=== PATIENT | female | born 1970 | race Caucasian/White ===

== ENCOUNTER → 2017-01-04 | Outpatient (CLI) | payer OTHER ==
--- NOTE | 2017-01-06 11:09 | MM ---
Reason for exam: screening (asymptomatic). Last mammogram was performed 1 year and 3 months ago. History: Patient is postmenopausal. Saline implants in both breasts, 1998. Took estrogen for 8 years beginning at age 29. Physical Findings: A clinical breast exam by your physician is recommended on an annual basis and results should be correlated with mammographic findings. MG Screening Mammo Implant/CAD Bilateral CC, MLO, and ID view(s) were taken. Prior study comparison: October 01, 2015, bilateral MG screening mammo implant/CAD. September 12, 2014, left breast MG work up mamm w CAD LT. September 12, 2014, left breast US breast limited LT. The breast tissue is heterogeneously dense. This may lower the sensitivity of mammography. Stable right breast retroaerolar mass 09/12/14 prior study views. No new suspicious findings. ASSESSMENT: Benign, BI-RAD 2 RECOMMENDATION: Routine screening mammogram of both breasts in 1 year.
== END | disposition home or self-care (01) ==
LOC: RADMAMWWP 15:20
PROVIDERS: ATTEND Family Medicine
DX: Z12.31 Encounter for screening mammogram for malignant neoplasm of breast (principal)

== ENCOUNTER → 2019-12-14 | Outpatient (CLI) | payer OTHER ==
--- NOTE | 2019-12-17 10:17 | MM ---
Reason for exam: screening (asymptomatic). Last mammogram was performed 2 years and 11 months ago. History: Patient is postmenopausal. Saline implants in both breasts, 1998. Took estrogen for 8 years beginning at age 29. Physical Findings: A clinical breast exam by your physician is recommended on an annual basis and results should be correlated with mammographic findings. MG Screening Mammo Implant/CAD Bilateral CC, MLO, and ID view(s) were taken. Prior study comparison: January 04, 2017, bilateral MG screening mammo implant/CAD. October 01, 2015, bilateral MG screening mammo implant/CAD. There are scattered fibroglandular densities. No significant changes when compared with prior studies. ASSESSMENT: Benign, BI-RAD 2 RECOMMENDATION: Routine screening mammogram of both breasts in 1 year.
== END | disposition home or self-care (01) ==
LOC: RADMAMWWP 14:41
PROVIDERS: ATTEND Family Medicine
DX: Z12.31 Encounter for screening mammogram for malignant neoplasm of breast (principal)
CPT/HCPCS: 77067

== ENCOUNTER → 2020-05-20 | Outpatient (CLI) | payer OTHER | END | disposition home or self-care (01) | LOC: LABWHC1 09:08 | PROVIDERS: ATTEND Nurse Practitioner Family | DX: R09.81 Nasal congestion (principal); R19.7 Diarrhea, unspecified | CPT/HCPCS: U0003; C9803 ==

== ENCOUNTER 2020-05-25 17:59 | Emergency (ER) | payer OTHER ==
[2020-05-25 18:05] VITALS: TEMP 98
[2020-05-25] MEDS ORDERED: ASPIRIN 81 MG PO STA (18:27)
[2020-05-25] MEDS ORDERED: SODIUM CHLORIDE 0.9% 500 ML 500 ML IV STA (18:27)
[2020-05-25] MEDS ORDERED: FAMOTIDINE 20 MG/2 ML VIAL IV STA (18:27)
[2020-05-25 18:46] LABS: Basophils # (A) 0.1 k/uL (0-0.2); Basophils % (A) 1 %; Eosinophils # (A) 0.2 k/uL (0-0.7); Eosinophils % (A) 2 %; HCT 41.4 % (34.0-46.0); HGB 14.1 gm/dL (11.4-16.0); Lymphocytes # (A) 2.9 k/uL (1.0-4.8); Lymphocytes % (A) 32 %; MCH 30.9 pg (25.0-35.0); MCHC 34.1 g/dL (31.0-37.0); MCV 90.7 fL (80.0-100.0); Mean Platelet Volume 6.3; Monocytes # (A) 0.4 k/uL (0-1.0); Monocytes % (A) 5 %; Neutrophils # (A) 5.5 k/uL (1.3-7.7); Neutrophils % (A) 60 %; Platelet Count 288 k/uL (150-450); RBC 4.57 m/uL (3.80-5.40); RDW 11.5 % (11.5-15.5); WBC 9.2 k/uL (3.8-10.6)
--- NOTE | 2020-05-25 18:56 | ED ---
General Adult HPI - General Chief complaint: Chest Pain Stated complaint: Chest pressure Time Seen by Provider: 05/25/20 18:06 Source: patient Mode of arrival: ambulatory Limitations: no limitations - History of Present Illness Initial comments: 49-year-old female patient presents to the emergency department today for evaluation of chest pressure. Patient states that she has had symptoms since last evening. States she thought it was indigestion but despite belching multiple times to discomfort has not gone away. States that pressure does radiate through to her back. Denies any nausea or vomiting though she did recently have a nausea and vomiting illness a few days ago that has resolved. States she was tested for COVID-19 which was negative. She denies any shortness of breath, dizziness, weakness. States she does have a history of high ch olesterol. Family history of cardiac disease. Patient denies any recent rash, fever, chills, diarrhea, constipation, back pain, numbness, tingling, hematuria, dysuria, urinary urgency, urinary frequency, headache, visual changes, or any other complaints. - Related Data Home Medications Medication Instructions Recorded Confirmed Atorvastatin Calcium [Lipitor] 10 mg PO DAILY 05/25/20 05/25/20 Azithromycin [Zithromax Z-pack (6 See Taper PO DIRECTED 05/25/20 05/25/20 tabs)] Biotin 10,000 mcg PO DAILY 05/25/20 05/25/20 Cholecalciferol [Vitamin D3 (25 2,000 unit PO DAILY 05/25/20 05/25/20 Mcg = 1000 Iu)] Cyanocobalamin (Vitamin B-12) 1,000 mcg PO DAILY 05/25/20 05/25/20 [Vitamin B-12] Fexofenadine HCl [Lo Allergy] 180 mg PO DAILY 05/25/20 05/25/20 Omeprazole 40 mg PO DAILY 05/25/20 05/25/20 Potassium Gluconate 99 mg PO Q48H 05/25/20 05/25/20 Allergies Allergy/AdvReac Type Severity Reaction Status Date / Time codeine Allergy Dyspnea Verified 05/25/20 18:31 Penicillins Allergy Rash/Hives Verified 05/25/20 18:31 Review of Systems ROS Statement: Those systems with pertinent positive or pertinent negative responses have been documented in the HPI. ROS Other: All systems not noted in ROS Statement are negative. Past Medical History Past Medical History: GERD/Reflux, Hyperlipidemia History of Any Multi-Drug Resistant Organisms: None Reported Past Surgical History: Section, Hysterectomy, Uterine Ablation Additional Past Surgical History / Comment(s): laproscopic exploration Past Psychological History: No Psychological Hx Reported Smoking Status: Former smoker Past Alcohol Use History: None Reported Past Drug Use History: None Reported General Exam Limitations: no limitations General appearance: alert, in no apparent distress, other (This is a well- developed, well-nourished adult female patient in no acute distress. Vital signs upon presentation are temperature 98.0F, pulse 90, respirations 18, blood pressure 154/88, pulse ox 100% on room air.) Respiratory exam: Present: normal lung sounds bilaterally. Absent: respiratory distress, wheezes, rales, rhonchi, stridor Cardiovascular Exam: Present: regular rate, normal rhythm, normal heart sounds. Absent: systolic murmur, diastolic murmur, rubs, gallop, clicks GI/Abdominal exam: Present: soft, normal bowel sounds. Absent: distended, tenderness, guarding, rebound, rigid Neurological exam: Present: alert, oriented X3, CN II-XII intact Psychiatric exam: Present: normal affect, normal mood Skin exam: Present: warm, dry, intact, normal color. Absent: rash Course Vital Signs 05/25/20 18:02 Temperature 98 F Pulse Rate 90 Respiratory 18 Rate Blood Pressure 154/88 O2 Sat by Pulse 100 Oximetry EKG Findings - EKG Comments: EKG Findings:: EKG obtained at 1813 shows normal sinus rhythm with a ventricular rate of 85, IN interval 142, QRS duration 86, QT 368, QTC 437. No evidence of ST elevation or depression. Medical Decision Making - Medical Decision Making 49-year-old female patient presents to the emergency department today for evaluation of chest pressure radiating through to her back. States it feels like indigestion and she has tried belching several times without relief. Physical examination was unremarkable. Lungs are clear to auscultation with good air movement. EKG showed sinus rhythm with no ST elevation or depression. Labs reviewed and troponin is negative. Given duration of symptoms and low risk factors patient will be discharged home to follow-up with her primary care physician first thing in the morning. Return parameters were discussed in detail. She verbalizes understanding and agrees with this plan. - Lab Data Result diagrams: 05/25/20 18:39 05/25/20 18:38 Lab Results 05/25/20 05/25/20 05/25/20 Range/Units 18:38 18:38 18:38 WBC (3.8-10.6) k/uL RBC (3.80-5.40) m/uL Hgb (11.4-16.0) gm/dL Hct (34.0-46.0) % MCV (80.0-100.0) fL MCH (25.0-35.0) pg MCHC (31.0-37.0) g/dL RDW (11.5-15.5) % Plt Count (150-450) k/uL MPV Neutrophils % % Lymphocytes % % Monocytes % % Eosinophils % % Basophils % % Neutrophils # (1.3-7.7) k/uL Lymphocytes # (1.0-4.8) k/uL Monocytes # (0-1.0) k/uL Eosinophils # (0-0.7) k/uL Basophils # (0-0.2) k/uL PT 9.9 (9.0-12.0) sec INR 0.9 (<1.2) APTT 22.2 (22.0-30.0) sec Sodium 137 (137-145) mmol/L Potassium 4.1 (3.5-5.1) mmol/L Chloride 105 (98-107) mmol/L Carbon Dioxide 27 (22-30) mmol/L Anion Gap 5 mmol/L BUN 12 (7-17) mg/dL Creatinine 0.75 (0.52-1.04) mg/dL Est GFR (CKD-EPI)AfAm >90 (>60 ml/min/1.73 sqM) Est GFR (CKD-EPI)NonAf >90 (>60 ml/min/1.73 sqM) Glucose 86 (74-99) mg/dL Calcium 9.5 (8.4-10.2) mg/dL Magnesium 2.0 (1.6-2.3) mg/dL Total Bilirubin 0.3 (0.2-1.3) mg/dL AST 24 (14-36) U/L ALT 19 (4-34) U/L Alkaline Phosphatase 54 (38-126) U/L Troponin I <0.012 (0.000-0.034) ng/mL Total Protein 7.1 (6.3-8.2) g/dL Albumin 4.3 (3.5-5.0) g/dL Lipase 177 (23-300) U/L Urine Color Urine Appearance (Clear) Urine pH (5.0-8.0) Ur Specific [place] (1.001-1.035) Urine Protein (Negative) Urine Glucose (UA) (Negative) Urine Ketones (Negative) Urine Blood (Negative) Urine Nitrite (Negative) Urine Bilirubin (Negative) Urine Urobilinogen (<2.0) mg/dL Ur Leukocyte Esterase (Negative) 05/25/20 05/25/20 Range/Units 18:39 18:51 WBC 9.2 (3.8-10.6) k/uL RBC 4.57 (3.80-5.40) m/uL Hgb 14.1 (11.4-16.0) gm/dL Hct 41.4 (34.0-46.0) % MCV 90.7 (80.0-100.0) fL MCH 30.9 (25.0-35.0) pg MCHC 34.1 (31.0-37.0) g/dL RDW 11.5 (11.5-15.5) % Plt Count 288 (150-450) k/uL MPV 6.3 Neutrophils % 60 % Lymphocytes % 32 % Monocytes % 5 % Eosinophils % 2 % Basophils % 1 % Neutrophils # 5.5 (1.3-7.7) k/uL Lymphocytes # 2.9 (1.0-4.8) k/uL Monocytes # 0.4 (0-1.0) k/uL Eosinophils # 0.2 (0-0.7) k/uL Basophils # 0.1 (0-0.2) k/uL PT (9.0-12.0) sec INR (<1.2) APTT (22.0-30.0) sec Sodium (137-145) mmol/L Potassium (3.5-5.1) mmol/L Chloride (98-107) mmol/L Carbon Dioxide (22-30) mmol/L Anion Gap mmol/L BUN (7-17) mg/dL Creatinine (0.52-1.04) mg/dL Est GFR (CKD-EPI)AfAm (>60 ml/min/1.73 sqM) Est GFR (CKD-EPI)NonAf (>60 ml/min/1.73 sqM) Glucose (74-99) mg/dL Calcium (8.4-10.2) mg/dL Magnesium (1.6-2.3) mg/dL Total Bilirubin (0.2-1.3) mg/dL AST (14-36) U/L ALT (4-34) U/L Alkaline Phosphatase (38-126) U/L Troponin I (0.000-0.034) ng/mL Total Protein (6.3-8.2) g/dL Albumin (3.5-5.0) g/dL Lipase (23-300) U/L Urine Color Colorless Urine Appearance Clear (Clear) Urine pH 6.5 (5.0-8.0) Ur Specific [place] 1.003 (1.001-1.035) Urine Protein Negative (Negative) Urine Glucose (UA) Negative (Negative) Urine Ketones Negative (Negative) Urine Blood Negative (Negative) Urine Nitrite Negative (Negative) Urine Bilirubin Negative (Negative) Urine Urobilinogen <2.0 (<2.0) mg/dL Ur Leukocyte Esterase Negative (Negative) - Radiology Data Radiology results: report reviewed, image reviewed Two-view x-ray of the chest was obtained. Report was reviewed in its entirety. Impression by Dr. Green shows normal chest. Disposition Clinical Impression: Chest pain Disposition: HOME SELF-CARE Condition: Good Instructions (If sedation given, give patient instructions): Chest Pain (ED) Additional Instructions: Follow-up with your primary care physician first thing in the morning. Return to the emergency department for any new, worsening, or concerning symptoms. Is patient prescribed a controlled substance at d/c from ED?: No Referrals: Abdoulaye Landaverde MD [Primary Care Provider] - 1-2 days Time of Disposition: 19:59
[2020-05-25 18:58] LABS: ALT 19 U/L (4-34); AST 24 U/L (14-36); African American GFR (CKD) >90 (>60 ml/min/1.73 sqM); Albumin 4.3 g/dL (3.5-5.0); Alkaline Phosphatase 54 U/L (38-126); Anion Gap 5 mmol/L; Blood Urea Nitrogen 12 mg/dL (7-17); Calcium 9.5 mg/dL (8.4-10.2); Carbon Dioxide 27 mmol/L (22-30); Chloride 105 mmol/L (98-107); Glucose 86 mg/dL (74-99); Lipase 177 U/L (23-300); Non-African American GFR(CKD) >90 (>60 ml/min/1.73 sqM); Potassium 4.1 mmol/L (3.5-5.1); Sodium 137 mmol/L (137-145); Total Bilirubin 0.3 mg/dL (0.2-1.3); Total Protein 7.1 g/dL (6.3-8.2)
[2020-05-25 19:00] LABS: INR 0.9 (<1.2); Partial Thromboplastin Time 22.2 sec (22.0-30.0); Prothrombin Time 9.9 sec (9.0-12.0)
[2020-05-25 19:01] LABS: Appearance,Urine Clear (Clear); Bilirubin,Urine Negative (Negative); Blood,Urine Negative (Negative); Color,Urine Colorless; Glucose,Urine (UA) Negative (Negative); Ketones,Urine Negative (Negative); Leukocyte Esterase,Urine Negative (Negative); Nitrite,Urine Negative (Negative); PH, Urine 6.5 (5.0-8.0); Protein,Urine Negative (Negative); Specific Gravity,Urine 1.003 (1.001-1.035); Urobilinogen,Urine <2.0 mg/dL (<2.0)
--- NOTE | 2020-05-25 19:48 | XR ---
EXAMINATION TYPE: XR chest 2V DATE OF EXAM: 05/25/2020 COMPARISON: NONE HISTORY: Wrist pain TECHNIQUE: 2 views FINDINGS: Heart and mediastinum are normal. Lungs are clear. Diaphragm is normal. Bony thorax appears normal. IMPRESSION: Normal chest.
[2020-05-25 20:21] VITALS: BP 140/82; PULSE 87; RESP 17
== END 2020-05-25 20:22 | disposition home or self-care (01) ==
LOC: EC 17:59
DX: R07.89 Other chest pain (principal); E78.5 Hyperlipidemia, unspecified; K21.9 Gastro-esophageal reflux disease without esophagitis; Z79.899 Other long term (current) drug therapy; Z88.5 Allergy status to narcotic agent; Z88.0 Allergy status to penicillin; Z87.891 Personal history of nicotine dependence
CPT/HCPCS: 36415; 71046; 80053; 81003; 83690; 83735; 84484; 85025; 85610; 85730; 93005; 96361; 96374; 99284

== ENCOUNTER → 2020-05-27 | Outpatient (CLI) | payer OTHER ==
--- NOTE | 2020-05-27 12:09 | US ---
EXAMINATION TYPE: US gallbladder DATE OF EXAM: 05/27/2020 COMPARISON: Us CLINICAL HISTORY: R10.11 RUQ Abd pain, R11.2 Nausea/Vomiting. EXAM MEASUREMENTS: Liver Length: 11.8 cm Gallbladder Wall: 0.2 cm CBD: 0.4 cm Right Kidney: 9.8 x 4.3 x 4.2 cm Extensive overlying bowel gas, technically difficult study. Pancreas: Obscured by bowel gas Liver: portions visualized wnl, partially obscured by overlying bowel Gallbladder: previous 4 mm nonshadowing nonmobile hyperechoic focus felt to reflect tiny polyp again seen Evidence for sonographic Sherman's sign: CBD: wnl Right Kidney: wnl IMPRESSION: Gallbladder polyp, further surveillance suggested. Limited exam.
== END | disposition home or self-care (01) ==
LOC: RADUSWWP 09:23
PROVIDERS: ATTEND Family Medicine
DX: K82.4 Cholesterolosis of gallbladder (principal); R11.2 Nausea with vomiting, unspecified
CPT/HCPCS: 76705

== ENCOUNTER → 2020-07-14 | Outpatient (CLI) | payer OTHER ==
--- NOTE | 2020-07-14 12:38 | FL ---
EXAMINATION TYPE: FL barium swallow DATE OF EXAM: 07/14/2020 CLINICAL INDICATION: 49-year-old female R13.10, dysphagia, throat and upper sternal pain with swallow ing. Acid reflux. COMPARISON: None Total Fluoroscopy Time: 2 minutes 7 seconds. Total images: 38 FINDINGS: The swallowing mechanism is normal. On the frontal view of the cervical esophagus, there is suggestio n of mild narrowing at the level of focal leftward deviation of the esophagus. Otherwise, hypopharyng eal anatomy is preserved. The thoracic portion has a normal course and caliber and normal motility. The mucosa is normal and no persistent filling defect is encountered. There is a tiny sliding hiatal hernia noted but without gastroesophageal reflux identified. IMPRESSION: 1. Focal leftward deviation and mild narrowing of the cervical esophagus seen on the frontal swallowi ng images. Correlate with physical exam to exclude underlying goiter or other neck mass. Thyroid ultr asound to further evaluate. Subsequent contrast enhanced CT neck may be indicated to exclude any othe r abnormality accounting for this esophageal deviation. 2. Tiny sliding hiatal hernia. Otherwise, the remaining exam is unremarkable.
== END | disposition home or self-care (01) ==
LOC: RADUSWWP 09:48
PROVIDERS: ATTEND Otolaryngology
DX: K22.2 Esophageal obstruction (principal); K22.8 Other specified diseases of esophagus; K44.9 Diaphragmatic hernia without obstruction or gangrene; Z88.5 Allergy status to narcotic agent; Z88.0 Allergy status to penicillin
CPT/HCPCS: 74220

== ENCOUNTER → 2020-07-28 | Outpatient (CLI) | payer OTHER ==
--- NOTE | 2020-07-28 14:07 | US ---
EXAMINATION TYPE: US thyroid st tissue head/neck DATE OF EXAM: 07/28/2020 COMPARISON: NONE CLINICAL HISTORY: J39.2 Throat Mass,R13.10 Difficulty swallowing solids. GLAND SIZE: Right Lobe: 4.2 X 1.0 X 1.3 cm Overall Parenchyma: heterogenous Left Lobe: 3.9 x 0.9 x 1.0 cm Overall Parenchyma: heterogeneous Isthmus Thickness: 0.3 cm NODULES RIGHT: # of nodules measured on right: 2 1. 1.1 X 0.6 x 0.9 cm solid or almost completely solid, hypoechoic nodule, which is wider than tall , with smooth margins, without echogenic foci. Prior size: No previous 2. 0.6 X 0.5 x 0.5 cm mixed cystic and solid, anechoic nodule, which is wider than tall, with sandie h margins, without echogenic foci. Prior size: no previous LEFT: # of nodules measured on left: 1. 0.7 X 0.3 x 0.6 cm mixed cystic and solid, hypoechoic nodule, which is wider than tall, with smo oth margins, without echogenic foci. Prior size: no previous 2. 0.6 X 0.3 x 0.7 cm mixed cystic and solid, hypoechoic nodule, which is wider than tall, with smo oth margins, without echogenic foci. Prior size: no previous ISTHMUS: # of nodules measured in the isthmus: 0 Bilateral neck scanned, no evidence of lymphadenopathy. IMPRESSION: Moderately suspicious nodule right lobe thyroid. Continue follow-up imaging 2017 ACR TI-RADS LEVEL: TR-RADS 4 - Moderately Suspicious: Follow if > 1 cm, FNA if > 1.5 cm *Highest TI-RADS level nodule reported
== END | disposition home or self-care (01) ==
LOC: RADUSWWP 13:29
PROVIDERS: ATTEND Family Medicine
DX: J39.2 Other diseases of pharynx (principal)
CPT/HCPCS: 76536

== ENCOUNTER → 2020-08-15 | Outpatient (CLI) | payer OTHER ==
--- NOTE | 2020-08-15 10:58 | CT ---
EXAMINATION TYPE: CT soft tissue neck w con DATE OF EXAM: 08/15/2020 HISTORY: Dysphasia. COMPARISON: NONE CT DLP: 423 mGycm. Automated Exposure Control for Dose Reduction was Utilized. TECHNIQUE: CT scan of the neck is performed with IV Contrast, patient injected with 100 mL of Isovue 300, axial images are obtained, coronal and sagittal reformatted images are reviewed. FINDINGS: Airway: Normal-sized thyroid. 2 subcentimeter right thyroid nodules coronal image 44 Parotid/submandibular glands: No gross abnormality seen. Carotid/Vascular Structures: No significant abnormality. Osseous Structures: No significant abnormality. Other: No suspicious greater than 1 cm neck adenopathy. Some scattered prominent but subcentimeter ly mph nodes throughout the neck bilaterally. For reference there is 9 x 5 mm lymph node left submandibu lar region posteriorly on axial image 28. Parapharyngeal fat spaces are maintained. IMPRESSION: No significant abnormality is seen to account for patient's symptoms of dysphagia.
--- NOTE | 2020-08-15 11:32 | FL ---
EXAMINATION TYPE: FL barium swallow w video DATE OF EXAM: 08/15/2020 MODIFIED SWALLOW / DEGLUTITION STUDY CLINICAL HISTORY: Dysphagia. TECHNIQUE: Deglutition study is performed utilizing thin liquid barium, honey and nectar thick liqui d barium, barium thick applesauce, and barium coated cracker. 34 seconds of fluoro time and 0 images obtained. COMPARISON: None. FINDINGS: The oral and pharyngeal phases show satisfactory initiation and propagation with all modali ties tested. Normal mastication is seen with solid modalities tested. There is no evidence of penet ration or aspiration with any modality tested. No significant pharyngeal residue was appreciated. IMPRESSION: Normal deglutition study. Please refer to speech therapist notes for further details if necessary.
[2020-08-15 16:42] LABS: Thyroid Peroxidase Antibodies 30.2 U/mL (0.0-60.0)
== END ==
LOC: RADCTMAIN 10:05
PROVIDERS: ATTEND Otolaryngology
DX: R47.02 Dysphasia (principal)
CPT/HCPCS: 92611; 84443; 86800; 86376; 74230; 70491; Q9967

== ENCOUNTER 2020-09-18 06:41 | Day surgery (SDC) | payer OTHER ==
[2020-09-17 08:34] VITALS: BMI 27.4
[~2020-09-18 06:41] MED LIST: LACTATED RINGERS 1,000 ML IV SCH; LIDOCAINE 1% (10MG/ML) FOR IV START INTRADERMA PRN
[2020-09-18] MEDS ORDERED: MIDAZOLAM 2 MG/2 ML VIAL ONE (07:41)
[2020-09-18] MEDS ORDERED: LIDOCAINE 1% INJ 10MG/ML (20 ML MDV) ONE (07:41)
[2020-09-18] MEDS ORDERED: PROPOFOL 10 MG/ML 20 ML VIAL IV ONE (07:41)
--- NOTE | 2020-09-18 07:58 | P.PCN ---
Date of Procedure: 09/18/20 Description of Procedure: BRIEF HISTORY: Patient is a 49-year-old female presented for outpatient esophagogastroduodenoscopy for evaluation of dysphagia. Vision previously experiencing solid food dysphagia started on omeprazole 40 mg currently reporting improvement in symptoms. Still having epigastric and right upper quadrant abdominal pain. PROCEDURE PERFORMED: Esophagogastroduodenoscopy with biopsy. PREOPERATIVE DIAGNOSIS: Dysphagia. ESTIMATED BLOOD LOSS: Minimal. IV sedation per anesthesia. PROCEDURE: After informed consent was obtained, the patient was brought into the endoscopy unit. IV sedation was administered by Anesthesia under continuous monitoring. Initially the Olympus GIF-190 video endoscope was inserted into the mouth. Esophagus intubated without any difficulty. It was gradually advanced into the stomach and duodenum and carefully examined. The bulb and the second part of the duodenum appeared normal, with biopsies taken. The scope at this time was withdrawn to the stomach, adequately insufflated with air, and upon careful examination, mucosa of the antrum, body, cardia and the fundus appeared normal, except for some mild punctate erythema in the antrum and body suggestive of mild gastritis with biopsies taken. The scope was then withdrawn into the esophagus. The GE junction was located at 37 cm from the incisors. The esophagus appeared normal, with biopsies of the lower esophagus of midesophagus taken. There were no erosions or ulcerations seen and the patient tolerated the procedure well. IMPRESSION: 1. Mild gastritis. 2. Biopsies of the duodenum, antrum and body, lower esophagus and midesophagus. RECOMMENDATIONS: The findings of this examination were discussed with the patient and her family. Okay to resume diet. Okay to resume medications. Await pathology from biopsies. Continue PPI therapy for now.
[2020-09-18 08:02] VITALS: RESP 16
[2020-09-18 08:33] VITALS: BP 148/73; PULSE 88
== END 2020-09-18 08:40 | disposition home or self-care (01) ==
LOC: ORWHC2ENDO 06:41
PROVIDERS: ATTEND Internal Medicine
DX: K29.50 Unspecified chronic gastritis without bleeding (principal); K21.00 Gastro-esophageal reflux disease with esophagitis, without bleeding; Z88.5 Allergy status to narcotic agent; Z88.0 Allergy status to penicillin; Z91.09 Other allergy status, other than to drugs and biological substances; Z79.899 Other long term (current) drug therapy; Z98.890 Other specified postprocedural states; E78.5 Hyperlipidemia, unspecified; Z90.710 Acquired absence of both cervix and uterus
CPT/HCPCS: 88305; 43239; J2250; J2001; J2704

== ENCOUNTER → 2020-12-15 | Outpatient (CLI) | payer OTHER ==
--- NOTE | 2020-12-17 08:32 | MM ---
Reason for exam: screening (asymptomatic). Last mammogram was performed 1 year ago. History: Patient is postmenopausal. Saline implants in both breasts, 1997. Took estrogen for 8 years beginning at age 29. Physical Findings: A clinical breast exam by your physician is recommended on an annual basis and results should be correlated with mammographic findings. MG Screening Mammo Implant/CAD Bilateral CC and MLO view(s) were taken. Prior study comparison: December 14, 2019, bilateral MG screening mammo implant/CAD. January 04, 2017, bilateral MG screening mammo implant/CAD. There are scattered fibroglandular densities. No significant changes when compared with prior studies. ASSESSMENT: Benign, BI-RAD 2 RECOMMENDATION: Routine screening mammogram of both breasts in 1 year.
== END | disposition home or self-care (01) ==
LOC: RADMAMWWP 15:56
PROVIDERS: ATTEND Family Medicine
DX: Z12.31 Encounter for screening mammogram for malignant neoplasm of breast (principal); Z78.0 Asymptomatic menopausal state; Z79.818 Long term (current) use of other agents affecting estrogen receptors and estrogen levels; Z98.82 Breast implant status
CPT/HCPCS: 77067

== ENCOUNTER → 2021-12-21 | Outpatient (CLI) | payer OTHER ==
--- NOTE | 2021-12-22 11:32 | MM ---
Reason for Exam: Screening (asymptomatic). Last screening mammogram was performed 12 month(s) ago. Patient History: Menarche at age 15. First Full-Term at age 21. Left ovary removed at age 29. Right ovary removed at age 29. Hysterectomy at age 29. Postmenopausal. Estrogen for 8 years from age 29 until age 37. 1998, Bilateral Implants. Risk Values: Antonette 5 year model risk: 0.7%. NCI Lifetime model risk: 6.6%. Prior Study Comparison: 01/04/2017 Bilateral Screening Mammogram, [facility]. 12/14/2019 Bilateral Screening Mammogram, [facility]. 12/15/2020 Bilateral Screening Mammogram, [facility]. Tissue Density: There are scattered fibroglandular densities. Findings: Analyzed By CAD. There is no suspicious group of microcalcifications or new suspicious mass in either breast. Bilateral breast implants redemonstrated. No significant change from prior examination. Overall Assessment: Benign, BI-RAD 2 Management: Screening Mammogram of both breasts in 1 year. A clinical breast exam by your physician is recommended on an annual basis and results should be correlated with mammographic findings. Electronically signed and approved by: Alphonse Kerns D.O.
== END | disposition home or self-care (01) ==
LOC: RADMAMWWP 15:47
PROVIDERS: ATTEND Family Medicine
DX: Z12.31 Encounter for screening mammogram for malignant neoplasm of breast (principal); Z78.0 Asymptomatic menopausal state
CPT/HCPCS: 77067

== ENCOUNTER → 2023-01-17 | Outpatient (CLI) | payer BC ==
--- NOTE | 2023-01-17 12:07 | CT ---
EXAMINATION TYPE: CT brain wo/w con DATE OF EXAM: 01/17/2023 COMPARISON: None available. HISTORY: Memory loss. CT DLP: 2024.4 mGycm Automated exposure control for dose reduction was used. CONTRAST: CT scan of the head is performed with IV Contrast, patient injected with 100 mL of Isovue 300. FINDINGS: There is no abnormal enhancing mass or midline shift identified. The ventricles and sulci are within normal limits in size. The globes are intact and the visualized sinuses are clear. IMPRESSION: 1. No acute intracranial process. 2. No enhancing lesions identified.
== END | disposition home or self-care (01) ==
LOC: RADCTMAIN 08:34
PROVIDERS: ATTEND Family Medicine
DX: R41.3 Other amnesia (principal); Z82.0 Family history of epilepsy and other diseases of the nervous system
CPT/HCPCS: 70470; Q9967

== ENCOUNTER → 2024-01-06 | Outpatient (CLI) | payer OTHER, BC ==
--- NOTE | 2024-02-01 13:33 | MM ---
Reason for Exam: Screening (asymptomatic). Last mammogram was performed 2 year(s) and 1 month(s) ago. Patient History: Menarche at age 15. First Full-Term at age 21. Left ovary removed at age 29. Right ovary removed at age 29. Hysterectomy at age 29. Postmenopausal. Estrogen for 8 years from age 29 until age 37. 1998, Bilateral Implants. Risk Values: Antonette 5 year model risk: 0.7%. NCI Lifetime model risk: 6.4%. Prior Study Comparison: 12/14/2019 Bilateral Screening Mammogram, [facility]. 12/15/2020 Bilateral Screening Mammogram, [facility]. 12/21/2021 Bilateral MG screening mammo implant/CAD, [facility]. Tissue Density: There are scattered areas of fibroglandular density. Findings: Analyzed By CAD. Bilateral breast implants appear intact. Right breast: There is no suspicious group of microcalcifications or new suspicious mass. Left breast: There is no suspicious group of microcalcifications or new suspicious mass. Overall Assessment: Negative, BI-RAD 1 Management: Screening Mammogram of both breasts in [address] [facility] will attempt to contact patient to return for supplemental views and ultrasound if indicated. Patient should continue monthly self-breast exams. A clinical breast exam by your physician is recommended on an annual basis. This exam should not preclude additional follow-up of suspicious palpable abnormalities. Note on Antonette scores and lifetime risk: 1. A Antonette score greater than 3% is considered moderate risk. If this is the case, consider specialist referral to assess eligibility for a risk reducing agent. 2. If overall lifetime risk for the development of breast cancer is 20% or higher, the patient may qualify for future screening with alternating mammogram and breast MRI. Electronically signed and approved by: Christiano Jose DO
== END | disposition home or self-care (01) ==
LOC: RADMAMWWP 14:58
PROVIDERS: ATTEND Family Medicine
DX: Z12.31 Encounter for screening mammogram for malignant neoplasm of breast (principal); R92.323 Mammographic fibroglandular density, bilateral breasts; Z78.0 Asymptomatic menopausal state; Z90.721 Acquired absence of ovaries, unilateral
CPT/HCPCS: 77063; 77067